=== PATIENT | female | born 1980 | race Caucasian/White ===

== ENCOUNTER → 2018-01-28 | Outpatient (CLI) | payer OTHER ==
[2018-01-28 11:42] LABS: FOLATE 18.6 ng/mL (>2.76)
== END ==
LOC: OD 09:07
PROVIDERS: ATTEND Specialist
DX: G35 Multiple sclerosis (principal); G62.9 Polyneuropathy, unspecified; R20.2 Paresthesia of skin
CPT/HCPCS: 36415; 82607; 82746; 83036